=== PATIENT | female | born 1960 | race Caucasian/White ===

== ENCOUNTER 2022-04-03 09:34 | Outpatient (RCR) | payer OTHER, SELFPAY ==
--- NOTE | 2022-04-03 10:40 | OTOPEVDC ---
Assessment and note entered by Christina Lorenz OTR/L Thank you for referring Shae Lin to [facility].? An evaluation has been completed. No further treatment is needed. Evaluation Information Assessment Status Evaluation Diagnosis Juvenile arthritis Onset 5 years old Subjective Information Patient presents today for a fitting of a powered wheelchair. Currently unable to utilize a manual wheelchair due to deformities in UEs hands/wrists and decreased strength of LEs, unable to use cane/ walker for functional mobility due to non ambulatory status from R chronic hip fracture and necrosis of hip. Reported Pain Level Pain Score 6: Self Report Assessment OT Clinical Summary Shae is unable to perform functional mobility safely and independently for household distances due to his current impairments of decreased UE/LE ROM and strength due to deformities second to juvenile arthritis, is non ambulatory and dependent for all functional transfers due to R chronic hip fracture and necrotic R hip. She is at risk for falls with non ambulatory status and deformities of bilateral UE's contributing to limited ability to perform functional mobility with a walker or cane. Patient demonstrates significant functional mobility limitations that impair their ability to safely participate in mobility-related activities of daily living (MRADL ?s). These limitations cannot be sufficiently resolved by the use of an appropriated fitted cane , walker or manual wheelchair. Please see scanned w/c evaluation report for more details. This is to notify provider that Shae Lin participated in a manual mobility device evaluation today. Recommendations were made specific to patient's needs. Seating Assessment documentation has been completed for detailed information on required equipment. Please note that no further care plan will be developed on this account. Plan of Care OT Services Indicated No
== END 2022-04-03 14:08 | disposition home or self-care (01) ==
LOC: ANHOT 09:34
PROVIDERS: PCP Family Medicine; Visit Provider Internal Medicine Rheumatology
DX: M08.00 Unspecified juvenile rheumatoid arthritis of unspecified site (principal)
CPT/HCPCS: 97165

== ENCOUNTER 2022-11-02 16:04 | Emergency (ER) | payer OTHER, SELFPAY ==
[2022-11-02 16:27] VITALS: BP 157/75; PULSE 96; RESP 16; TEMP 36.8; O2SAT 99
--- NOTE | 2022-11-02 16:37 | ED.FEMALEGU ---
HPI - Female Genitourinary General Chief complaint: Urogenital-Female Stated complaint: UTI Time Seen by Provider: 11/02/22 16:29 Source: patient and RN notes reviewed Mode of arrival: ambulatory Limitations: no limitations History of Present Illness HPI Narrative: Patient presents today complaining of a 2 day history of urinary frequency and urgency. Denies any additional symptoms to include dysuria, hematuria, abdominal pain, back pain, fever, nausea or vomiting. She has tried no [id number] treatment prior to arrival. No recent antibiotic use. Related Data Home Medications Medication Instructions Recorded Confirmed celecoxib 200 mg capsule (Celebrex) 200 mg PO BID 06/01/20 06/28/21 folic acid 1 mg tablet 1 mg PO DAILY 06/01/20 06/28/21 multivitamin 1 tablet PO DAILY 06/01/20 06/28/21 methotrexate sodium 2.5 mg tablet 7.5 mg PO WEEKLY 04/13/22 prednisolone acetate 1 % eye drp 11/02/22 drops,suspension Allergies Allergy/AdvReac Type Severity Reaction Status Date / Time No Known Allergies Allergy Verified 04/13/22 09:45 Review of Systems Review of Systems: CONSTITUTIONAL: Denies body aches, fever, chills, or sweats. EYES: Denies visual changes, redness, or discharge. ENT: Denies rhinorrhea, congestion, sore throat, or otalgia. CARDIOVASCULAR: Denies chest pain, palpitations, or edema. RESPIRATORY: Denies cough or dyspnea. GASTROINTESTINAL: Denies abdominal pain, nausea, vomiting, or diarrhea. GENITOURINARY: Denies dysuria or hematuria.+ frequency, urgency SKIN: Denies rash, itching, or wounds. MUSCULOSKELETAL: Denies back pain, joint pain, or myalgia. NEUROLOGIC: Denies headache, numbness, tingling, or weakness. PSYCH: Denies depression or anxiety. 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 Primary hypertension Family History Family History Mother Diabetes mellitus Family history of cardiovascular disease Father Family history of cardiovascular disease Family history of Alzheimer's disease Social History Social History Smoking status: Never smoker Second hand tobacco smoke exposure: No Alcohol intake: current Drinks per week: 1 Substance use: never Substance use type: does not use Lack of Transportation: No Lack of Food: Never True Current Housing: I Have Housing Concerned About Future Housing: No Difficulty Paying Gas/Electric Bills: No Difficulty Paying for Meds: No Currently Unemployed: No Education: Bachelor's Degree Difficulty w/ Childcare or Family Care: No Comments At time of signature, I have reviewed and agree with nursing past medical, surgical, social and family history unless otherwise noted. Please see nursing chart for further information. There is no relevant family history pertinent to the presenting complaint Exam Narrative: GENERAL: Well-appearing, well-nourished, and in no acute distress. HEAD: Normocephalic, atraumatic. ENT: Mucous membranes pink and moist. NECK: Normal AROM. CHEST: No respiratory distress. Clear to auscultation. HEART: Regular rate and rhythm. No murmur appreciated. Normal peripheral pulses. ABDOMEN: Soft, nontender, nondistended, normal active bowel sounds. EXTREMITIES: Deformities of hands due to juvenile arthritis. SKIN: Warm, dry, no rash. Capillary refill normal. Normal skin turgor. NEURO: No focal deficits. Alert and oriented x3. Wheelchair bound PSYCH: Normal affect. No signs of depression or anxiety. Course Course Level of Care: Express Care Visit Vital Signs Vital signs: Vital Signs Temperature 98.3 F 11/02/22 16:27 Pulse Rate 96 11/02/22 16:27 Respiratory Rate 16 11/02/22 16:27 Blood Pressure 157/75 H 11/02/22 16:
== END 2022-11-02 16:45 | disposition home or self-care (01) ==
PROVIDERS: Emergency Provider Nurse Practitioner; PCP Family Medicine
DX: N30.01 Acute cystitis with hematuria (principal); I10 Essential (primary) hypertension
CPT/HCPCS: 81003; 87086; 87088; 99213; G0463

== ENCOUNTER 2023-03-20 17:52 | Emergency (ER) | payer OTHER, SELFPAY ==
--- NOTE | ~2023-03-20 | XR_ITS ---
EXAM: XR foot RT 2V DATE: 03/20/2023 18:50 HISTORY: fall from bed, GENERAL PAIN, . COMPARISON: None available. FINDINGS: Multiple fixation screws in the ankle. Ankle and midfoot joint effusions. High arch. Hamme rtoe deformity. Severe osteopenia. IMPRESSION: No acute osseous finding or radiographic evidence of hardware related complication in the foot. Reviewed, dictated and finalized at location K. IMPRESSION: No acute osseous finding or radiographic evidence of hardware relat ed complication in the foot.
--- NOTE | ~2023-03-20 | XR_ITS ---
EXAM: [id number] DATE: 03/20/2023 18:50 HISTORY: fall from bed, LATERAL PAIN, SHARP PAIN WITH MOVEMENT . COMPARISON: CT lower extremity 03/26/2005. FINDINGS: Decreased mineralization. Partially visualized femoral shaft fixation hardware and wires. R ight knee total arthroplasty, in good position. Angular deformity of the lateral supracondylar cortex . IMPRESSION: Likely mildly displaced lateral supracondylar distal femoral fracture. Reviewed, dictated and finalized at location K. IMPRESSION: Likely mildly displaced lateral supracondylar distal femoral fractu re.
--- NOTE | ~2023-03-20 | XR_ITS ---
EXAM: XR hip RT min 2V DATE: 03/20/2023 18:50 HISTORY: fall from bed, MULTIPLE SURGERIES . COMPARISON: Priors and. FINDINGS: Decreased mineralization. Revision arthroplasty in the right hip. Cerclage wires at the gr eater trochanter. Screw and plate fixation with cerclage wires of the proximal and mid femur. No hard pardo fracture or perihilar hardware lucency. No osseous fracture. IMPRESSION: No acute osseous finding in the right hip. No radiographic evidence of hardware-related c omplication. Reviewed, dictated and finalized at location K. IMPRESSION: No acute osseous finding in the right hip. No radiographic evidence of hardware-related complication.
[2023-03-20 17:48] VITALS: BP 130/89; PULSE 127; RESP 20; TEMP 37; O2SAT 100
--- NOTE | 2023-03-20 18:05 | ED.GENADULT ---
HPI - General Adult General Chief complaint: Fall <ANNI Field Last Filed: 03/21/23 02:10> Stated complaint: fall from bed <ANNI Field Last Filed: 03/21/23 02:10> Source: patient <ANNI Field Last Filed: 03/21/23 02:10> Mode of arrival: EMS <ANNI Field Last Filed: 03/21/23 02:10> Limitations: no limitations <ANNI Field Last Filed: 03/21/23 02:10> History of Present Illness HPI narrative: This is a 63-year-old female with PMH of osteoporosis, juvenile rheumatoid arthritis and bilateral knee arthroplasty who presents to the ED via EMS from home for chief complaint of a fall. Patient is normally nonambulatory uses a wheelchair for ambulation. Patient states that she was reaching over for something while in bed and she accidentally fell into the crack between the bed and the wall. Reports pain to the right knee primarily. Reports some slight hip pain and right foot pain. She is able to recall the entirety of the events. Denies any head injury or LOC. Denies any preceding chest pain or shortness of breath. Denies any further site of injury or pain. Denies numbness or weakness. <ANNI Field Last Filed: 03/21/23 02:10> Related Data Home medications: Home Medications Medication Instructions Recorded Confirmed celecoxib 200 mg capsule (Celebrex) 200 mg PO BID 06/01/20 11/12/22 folic acid 1 mg tablet 1 mg PO DAILY 06/01/20 11/12/22 multivitamin 1 tablet PO DAILY 06/01/20 11/12/22 methotrexate sodium 2.5 mg tablet 7.5 mg PO WEEKLY 04/13/22 11/12/22 prednisolone acetate 1 % eye drp 11/02/22 11/12/22 drops,suspension <ANNI Field Last Filed: 03/21/23 02:10> Allergies/adverse reactions: Allergies Allergy/AdvReac Type Severity Reaction Status Date / Time No Known Allergies Allergy Verified 03/20/23 19:45 <ANNI Field Last Filed: 03/21/23 02:10> Review of Systems Review of Systems: All systems as dictated in HPI <ANNI Field Last Filed: 03/21/23 02:10> PMFSH Past Medical History Medical History: Medical History MONSERRAT (juvenile idiopathic arthritis) associated chronic anterior uveitis Primary hypertension <Edu Ruiz PA-C - Last Filed: 03/21/23 02:10> Family History Family History: Family History Mother Diabetes mellitus Family history of cardiovascular disease Father Family history of cardiovascular disease Family history of Alzheimer's disease <Edu Ruiz PA-C - Last Filed: 03/21/23 02:10> Social History Social History: Social History Smoking status: Never smoker Second hand tobacco smoke exposure: No Alcohol intake: current Drinks per week: 1 Substance use: never Substance use type: does not use Lack of Transportation: No Lack of Food: Never True Current Housing: I Have Housing Concerned About Future Housing: No Difficulty Paying Gas/Electric Bills: No Difficulty Paying for Meds: No Currently Unemployed: No Education: Bachelor's Degree Difficulty w/ Childcare or Family Care: No <Edu Ruiz PA-C - Last Filed: 03/21/23 02:10> Exam Narrative: GENERAL: Well-appearing, well-nourished, and in no acute distress. HEAD: Normocephalic, atraumatic. EYES: PERRLA and EOMI. ENT: Nares clear, no rhinorrhea or epistaxis. Mucous membranes moist. Oropharynx without tonsillar hypertrophy exudate or other lesions. NECK: Supple. No adenopathy or masses. CHEST: No respiratory distress. Clear to auscultation. No wheezes rales or rhonchi HEART: Regular rate and rhythm. No murmur heard. Normal peripheral pulses. ABDOMEN: Soft, nontender, nondistended, normal active bowel sounds. MSK: Mild tenderness and swelling to the right knee. No pain with hip l
[2023-03-20] MEDS: ACETAMINOPHEN 500 MG TABLET 1000 MG PO (18:31)
[2023-03-20] MEDS: MORPHINE SULFATE (*CRX) 4 MG/ML INJ IV PUSH ×2 (20:13→22:56)
[2023-03-20 20:22] LABS: Basophils Absolute Auto 0.1 K/mm3 (0.0-0.1); Basophils Percent Auto 0.5 % (0.2-1.2); Eosinophils Absolute Auto 0.1 K/mm3 (0-0.3); Eosinophils Percent Auto 0.4 % (0-4.4); Hematocrit 34.6 % (37.0-47.0); Hemoglobin 10.9 g/dL (12.0-15.0); Immature Granulocyte Absolute 0.09 K/mm3 (0.00-0.031); Immature Granulocyte Percent A 0.6 % (0-0.5); Lymphocytes Absolute Auto 1.02 K/mm3 (0.9-3.2); Lymphocytes Percent Auto 6.4 % (18.3-44.2); Mean Corpuscular HGB Conc 31.5 g/dl (32-36); Mean Corpuscular Hemoglobin 33.5 pg (26-34); Mean Corpuscular Volume 106.5 fl (80-100); Mean Platelet Volume 8.8 fl (7.4-10.4); Monocytes Absolute Auto 0.6 K/mm3 (0.1-0.6); Monocytes Percent Auto 3.7 % (2.6-8.5); Neutrophils Absolute Auto 14.1 K/mm3 (1.3-6.7); Neutrophils Percent Auto 88.4 % (45.5-73.1); Platelet Count Result 260 k/mm3 (150-375); Red Blood Count 3.25 M/mm3 (4.2-5.4); Red Cell Distribution Width 13.6 % (11.5-14.5); White Blood Count 15.9 K/mm3 (4.5-10.0)
[2023-03-20 20:33] LABS: Alanine Aminotransferase 23 U/L (6-35); Albumin Level 4.4 g/dL (3.5-5.1); Alkaline Phosphatase 53 U/L (38-126); Anion Gap 12 mmol/L (8-16); Aspartate Amino Transferase 37 U/L (14-36); Bilirubin,Total 0.5 mg/dL (0.2-1.3); Blood Urea Nitrogen 58 mg/dL (7-17); Carbon Dioxide 19 mmol/L (22-30); Chloride 106 mmol/L (98-107); Estimated CRCL calculation 33 ml/min; Estimated Glomerular Filt Rate 50; Glucose 126 mg/dL (65-110); Potassium 4.9 mmol/L (3.4-5.0); Sodium 137 mmol/L (137-145)
[2023-03-20 20:39] LABS: Platelet Estimate Adequate (Adequate)
[2023-03-20 20:40] LABS: Hypochromasia 1+ (NORMAL); Macrocytosis 1+ (NORMAL); Schistocytes None Seen (NORMAL)
[2023-03-20] MEDS: SODIUM CHLORIDE 0.9% IV 1,000 ML 999 ML IV CONT (21:09)
[2023-03-20 21:10] VITALS: BP 151/83; PULSE 92; RESP 18; O2SAT 100
== END 2023-03-20 22:07 | disposition short-term general hospital (02) ==
PROVIDERS: Emergency Provider Physician Assistant; PCP Family Medicine
DX: S72.451A Displaced supracondylar fracture without intracondylar extension of lower end of right femur, initial encounter for closed fracture (principal); M97.11XA Periprosthetic fracture around internal prosthetic right knee joint, initial encounter; I10 Essential (primary) hypertension; M81.0 Age-related osteoporosis without current pathological fracture; M08.00 Unspecified juvenile rheumatoid arthritis of unspecified site; H20.10 Chronic iridocyclitis, unspecified eye; Z96.641 Presence of right artificial hip joint; Z96.653 Presence of artificial knee joint, bilateral; W06.XXXA Fall from bed, initial encounter
CPT/HCPCS: 36415; 73502; 73560; 73620; 80053; 85025; 96361; 96374; 96376; 99285; A9270; J2270; J7030

== ENCOUNTER 2023-11-08 09:12 | Outpatient (CLI) | payer OTHER, SELFPAY ==
[2023-11-08 09:56] LABS: Anion Gap 9 mmol/L (4-12); Appearance Urine Clear (Clear); Bacteria Urine None Seen /hpf; Bilirubin Urine Negative (Negative); Blood Urea Nitrogen 75 mg/dL (7-17); Blood Urine Negative (Negative); Calcium 9.5 mg/dL (8.4-10.2); Carbon Dioxide 20 mmol/L (22-30); Chloride 104 mmol/L (98-107); Color Urine Yellow (Yellow); Estimated Glomerular Filt Rate 38; Glucose 77 mg/dL (65-110); Glucose Urine UA Negative (Negative); Ketones Urine Negative (Negative); Leukocyte Esterase Ur Trace LEU/UL (Negative); Nitrate Urine Negative (Negative); Non Pathogenic Casts 0-2; Potassium 5.8 mmol/L (3.4-5.0); Protein Urine Trace mg/dL (Negative); RBC Urine 0-2 /hpf (0-2); Sodium 133 mmol/L (137-145); Sodium Urine Random 50 meq/L; Specific Grav Ur 1.007 (1.001-1.035); Squamous Epithelial Cell Urine None Seen /hpf (Few); Urobilinogen Urine 0.2 mg/dL (<2.0); pH Urine 5.5 (5.0-9.0)
[2023-11-08 09:58] LABS: Add Urine Microscopic? YES
[2023-11-11 14:53] LABS: Osmolality, Urine 234 mOsm/kg (50-1200)
== END 2023-11-08 09:13 | disposition home or self-care (01) ==
LOC: ANHLAB 09:14
PROVIDERS: PCP Family Medicine; Visit Provider Family Medicine
DX: E87.1 Hypo-osmolality and hyponatremia (principal); N18.30 Chronic kidney disease, stage 3 unspecified
CPT/HCPCS: 36415; 80048; 81001; 82533; 83930; 83935; 84300; 87086; 87088

== ENCOUNTER 2023-11-11 11:54 | Emergency (ER) | payer OTHER, SELFPAY ==
[2023-11-11] VITALS (11 sets, daily range): BP systolic 124–170; BP diastolic 73–88; PULSE 81–102; RESP 12–24; TEMP 36.2; O2SAT 99–100
--- NOTE | 2023-11-11 12:13 | ECG_ITS ---
Test Date: 2023-11-11 12:17:17 Measurements Intervals [employer] Rate: 94 P: 73 [place]: 152 QRS: 22 QRSD: 72 T: 66 QT: 316 QTc: 396 Interpretive Statements SINUS RHYTHM NORMAL ELECTROCARDIOGRAM No previous ECG available for comparison Electronically Signed On 11-11-2023 16:00:11 CDT by Phil Fields M.D.
[2023-11-11 12:40] LABS: Alanine Aminotransferase 18 U/L (6-35); Albumin Level 4.6 g/dL (3.5-5.1); Alkaline Phosphatase 49 U/L (38-126); Anion Gap 11 mmol/L (4-12); Aspartate Amino Transferase 30 U/L (14-36); Bilirubin,Total 0.4 mg/dL (0.2-1.3); Blood Urea Nitrogen 74 mg/dL (7-17); Calcium 9.9 mg/dL (8.4-10.2); Carbon Dioxide 21 mmol/L (22-30); Chloride 104 mmol/L (98-107); Estimated CRCL calculation 24 ml/min; Estimated Glomerular Filt Rate 42; Glucose 133 mg/dL (65-110); Magnesium 1.5 mg/dL (1.6-2.3); Potassium 5.2 mmol/L (3.4-5.0); Sodium 136 mmol/L (137-145)
[2023-11-11 12:44] LABS: Basophils Absolute Auto 0.1 K/mm3 (0.0-0.1); Basophils Percent Auto 0.8 % (0.2-1.2); Eosinophils Absolute Auto 0.2 K/mm3 (0-0.3); Eosinophils Percent Auto 3.2 % (0-4.4); Hematocrit 31.8 % (37.0-47.0); Hemoglobin 10.5 g/dL (12.0-15.0); Immature Granulocyte Absolute 0.03 K/mm3 (0.00-0.031); Immature Granulocyte Percent A 0.4 % (0-0.5); Lymphocytes Absolute Auto 1.29 K/mm3 (0.9-3.2); Lymphocytes Percent Auto 17.8 % (18.3-44.2); Mean Corpuscular Hemoglobin 35.4 pg (26-34); Mean Corpuscular Volume 107.1 fl (80-100); Mean Platelet Volume 8.7 fl (7.4-10.4); Monocytes Absolute Auto 0.3 K/mm3 (0.1-0.6); Monocytes Percent Auto 4.6 % (2.6-8.5); Neutrophils Absolute Auto 5.3 K/mm3 (1.3-6.7); Neutrophils Percent Auto 73.2 % (45.5-73.1); Platelet Count Result 206 k/mm3 (150-375); Red Blood Count 2.97 M/mm3 (4.2-5.4); Red Cell Distribution Width 14.9 % (11.5-14.5); White Blood Count 7.2 K/mm3 (4.5-10.0)
[2023-11-11 12:53] LABS: Anisocytosis 1+; Macrocytosis 1+ (NORMAL); Platelet Estimate Adequate (Adequate); Schistocytes None Seen
--- NOTE | 2023-11-11 15:12 | ED.RECABL ---
HPI - Recheck/Abnormal Lab/Rx General Chief Complaint: Recheck/Abnormal Lab/Rx Stated Complaint: high potassium from pcp Time Seen by Provider: 11/11/23 14:37 Source: patient, RN notes reviewed and old records reviewed Mode of arrival: wheelchair Limitations: no limitations History of Present Illness HPI narrative: THis is a 63 year old female who presents for evaluation of elevated potassium. Patient states 2 weeks ago she had labs by her hotel housekeeper and her labs shows renal failure so she was referred to PCP. Her PCP, Dr. Janay Toledo, ordered repeat labs on 11/08/23 and renal US as outpatient. Her labs showed potassium of 5.8 so she was referred to ER. She states she was unaware of kidney issues until her hotel housekeeper told her. She denies nausea, vomiting, diarrhea or any reason for dehydration. She denies any complaints. She takes hydrochlorothiazide for hypertension. Related Data Home Medications Medication Instructions Recorded Confirmed celecoxib 200 mg capsule (Celebrex) 200 mg PO BID 06/01/20 11/12/22 folic acid 1 mg tablet 1 mg PO DAILY 06/01/20 11/12/22 multivitamin 1 tablet PO DAILY 06/01/20 11/12/22 methotrexate sodium 2.5 mg tablet 7.5 mg PO WEEKLY 04/13/22 11/12/22 prednisolone acetate 1 % eye drp 11/02/22 11/12/22 drops,suspension Allergies Allergy/AdvReac Type Severity Reaction Status Date / Time No Known Allergies Allergy Verified 11/11/23 13:11 Review of Systems Constitutional: Constitutional: Denies weakness Cardiovascular: Cardiovascular: Denies syncope, Denies rapid heart rate, Denies irregular heart rhythm, Denies leg edema and Denies dyspnea Respiratory: Respiratory: Denies chest congestion, Denies hemoptysis, Denies excessive phlegm production and Denies dyspnea Gastrointestinal: Gastrointestinal: Denies abdominal pain, Denies hematochezia, Denies diarrhea and Denies vomiting Genitourinary: Genitourinary: Denies hematuria and Denies dysuria Musculoskeletal: Musculoskeletal: Denies joint swelling, Denies loss of height and Denies muscle weakness Neurologic: Denies syncope, Denies focal weakness and Denies weakness PMFSH Past Medical History Medical History MONSERRAT (juvenile idiopathic arthritis) associated chronic anterior uveitis Primary hypertension Family History Family History Mother Diabetes mellitus Family history of cardiovascular disease Father Family history of cardiovascular disease Family history of Alzheimer's disease Social History Social History Smoking status: Never smoker Second hand tobacco smoke exposure: No Alcohol intake: current Drinks per week: 1 Substance use: never Substance use type: does not use Lack of Transportation: No Lack of Food: Never True Current Housing: I Have Housing Concerned About Future Housing: No Difficulty Paying Gas/Electric Bills: No Difficulty Paying for Meds: No Currently Unemployed: No Education: Bachelor's Degree Difficulty w/ Childcare or Family Care: No Exam Const: General: no acute distress and alert Orientation/consciousness: patient oriented x3 Resp: Effort & Inspection: normal respiratory effort Auscultation: clear to auscultation bilaterally Cardio: Rate: regular rate Rhythm: regular rhythm Heart sounds: no murmurs GI: GI Palp: Yes Soft to palpation, No Tenderness to palpation present (GI), No Guarding due to palpation present (GI) and No Rigid due to palpation Auscultation: normal bowel sounds Skin: General skin exam: normal color Neuro: General: patient oriented x3 Extrem: General: no pedal edema Psych: Mental Status: mental status grossly normal Affect: normal affect Attitude: cooperative Course Reevaluation(s) Reevaluation #1: Patient given 1 liter IV fluids for elevated BUN and CR. Potassium
[2023-11-11] MEDS: SODIUM CHLORIDE 0.9% IV 1,000 ML 999 ML IV CONT (16:15)
== END 2023-11-11 17:30 | disposition home or self-care (01) ==
PROVIDERS: Emergency Medicine; Emergency Provider General Practice; PCP Family Medicine
DX: N28.9 Disorder of kidney and ureter, unspecified (principal); E78.5 Hyperlipidemia, unspecified; I10 Essential (primary) hypertension
CPT/HCPCS: 36415; 80053; 83735; 85025; 93005; 96360; 99284; J7030

== ENCOUNTER 2023-11-13 13:46 | Outpatient (CLI) | payer OTHER, SELFPAY ==
--- NOTE | ~2023-11-13 | US_ITS ---
EXAMINATION: US renal BI DATE: 11/13/2023 14:27 INDICATION: Stage III chronic kidney disease TECHNIQUE: Multiple ultrasound grayscale images of the kidneys were obtained. COMPARISON: None. FINDINGS: The right kidney measures 8.6 x 3.8 x 3.4 cm. The left kidney measures 8.0 x 2.7 x 2.7 cm. The kidney s demonstrate normal echogenicity. 6 mm hyperechoic and shadowing stone at the left kidney. There is no hydronephrosis in either kidney. No stones identified. The bladder is normal. IMPRESSION: 1. Mild bilateral renal atrophy with 6 mm nonobstructing left renal stone. No hydronephrosis. Reviewed, dictated and finalized at location B.
== END 2023-11-13 13:47 | disposition home or self-care (01) ==
PROVIDERS: PCP Family Medicine; Visit Provider Family Medicine
DX: N18.30 Chronic kidney disease, stage 3 unspecified (principal)
CPT/HCPCS: 76775